=== PATIENT | female | born 1955 | race African-American/Black ===

== ENCOUNTER 2016-07-24 23:02 | Emergency (ER) | payer OTHER ==
[~2016-07-24 23:02] MED LIST: FLEX PO; HYDROCODONE/APAP PO; MICARDIS H80 MG/25 M PO; UNKNOWN INHALER IH
== END 2016-07-24 23:51 | disposition home or self-care (01) ==
LOC: ER 23:02
DX: J40 Bronchitis, not specified as acute or chronic (principal); J44.9 Chronic obstructive pulmonary disease, unspecified; E11.9 Type 2 diabetes mellitus without complications; Z79.899 Other long term (current) drug therapy
CPT/HCPCS: 71020; 93005; 94640; 96372; 99285; A9270-GY; J2930